=== PATIENT | female | born 2000 | race Caucasian/White ===

== ENCOUNTER 2020-11-27 13:47 | Emergency (ER) | payer OTHER ==
[~2020-11-27] VITALS: Ht 157.5 cm; Wt 95.3 kg
[2020-11-27 13:54] VITALS: BP 119/76
--- NOTE | 2020-11-27 13:55 | NUR ---
Patient ambulated to bed 08 with steady/even gait.
[2020-11-27] MEDS ORDERED: KETOROLAC 30 MG/ML VIAL IM ONE (14:00)
--- NOTE | 2020-11-27 14:02 | NUR ---
20 y/o F coming in from home with c/c left ring finger pain. Patient states she fell while cleaning at home yesterday, landed on her hand and began experiencing swelling. Pt states she took Tylenol at 10am 11/27/20 with minor relief. Pt denies any other medical complaint at this time. Denies head, neck, back pain and states she did not lose LOC or injury any other body part. Swelling noted to left ring finger; CMS intact. Patient states it's hard for her to make a fist with her left hand due to the pain/swelling. Pt placed onto blood pressure cuff, pulse ox. Bed locked in lowest position, side rails x 1, call light in reach. PMH/Meds/Sx: Denies GAILA
--- NOTE | 2020-11-27 14:08 | NUR ---
Xray at bedside
--- NOTE | 2020-11-27 14:30 | NUR ---
Patient states minor relief with pain medication; states pain 8/10 at this time. Respirations even/unlabored. Bed locked in lowest position, side rails x 1, call light in reach.
--- NOTE | 2020-11-27 14:48 | NUR ---
Patient states better pain relief; 6/10 at this time. No distress noted; respirations even/unlabored. Bed locked in lowest position, side rails x 1, call light in reach.
[2020-11-27] MEDS ORDERED: NAPR-54 PO (14:51)
[2020-11-27 15:19] VITALS: BP 115/71
== END 2020-11-27 15:19 | disposition home or self-care (01) ==
LOC: MED 13:47
DX: M79.645 Pain in left finger(s) (principal); W19.XXXA Unspecified fall, initial encounter; Y93.89 Activity, other specified; Y92.89 Other specified places as the place of occurrence of the external cause; Y99.8 Other external cause status
CPT/HCPCS: 73140; 96372; 99283; J1885

== ENCOUNTER 2020-12-18 13:09 | Emergency (ER) | payer OTHER ==
[~2020-12-18] VITALS: Ht 157.5 cm; Wt 99.8 kg
[~2020-12-18 13:09] MED LIST: NAPR-54 PO
[2020-12-18 13:27] VITALS: BP 119/83
--- NOTE | 2020-12-18 13:53 | NUR ---
PT TAKEN TO CT VIA W/C.
--- NOTE | 2020-12-18 13:58 | NUR ---
PT TAKEN TO LOBBY FROM CT.
--- NOTE | 2020-12-18 14:04 | NUR ---
PATIENT AMBULATED TO BED 11.
[2020-12-18 14:09] LABS: APPEARANCE,URINE CLEAR (CLEAR); BILIRUBIN,URINE NEGATIVE (NEGATIVE); BLOOD, URINE NEGATIVE (NEGATIVE); COLOR,URINE YELLOW (YELLOW); LEUKOCYTE ESTERASE ,URINE TRACE (NEGATIVE); NITRITE, URINE NEGATIVE (NEGATIVE); PH,URINE 5.5 (5.0-9.0); UGLUCOSE NEGATIVE (NEGATIVE)
[2020-12-18 14:09] LABS: HEMATOCRIT 36.2 % (36-48); HEMOGLOBIN 11.4 g/dL (12.0-16.0); MEAN CORPUSCULAR HEMOGLOBIN 21 pg (27-31); MEAN CORPUSCULAR HGB CONC 32 g/dL (33-37); MEAN CORPUSCULAR VOLUME 67.6 fL (80-94); PLATELET COUNT (AUTO) 358 K/uL (140-450); RED BLOOD CELL COUNT(AUTO) 5.35 MIL/uL (4.20-5.40); RED CELL DISTRIBUTION WIDTH 17.2 % (11.6-13.7); WHITE BLOOD COUNT (AUTO) 8.7 K/uL (4.8-10.8)
--- NOTE | 2020-12-18 14:12 | NUR ---
Dr. Ortega is evaluating the patient at bedside.
--- NOTE | 2020-12-18 14:17 | NUR ---
20 YEAR OLD FEMALE COMPLAINS OF ABDOMINAL PAIN, NAUSEA, VOMITTING, AND DIARRHEA X 2AM IN MORNING. PT DENIES TRAUMA, DENIES BLOOD IN VOMIT/DEFECATION, DENIES CHANGES IN DIET. PT AOX4, BREATHING EVEN AND UNLABORED, SKIN WARM AND DRY. BED IN LOWEST POSITION, LOCKED, SEMI-KAYE POSITION, BED RAIL UPX1. PMH - DENIES ALLERGIES - NKA
[2020-12-18 14:23] LABS: RBC,URINE 0-5 /HPF (0-5)
[2020-12-18 14:24] LABS: ALBUMIN 3.9 g/dL (3.4-5.0); ANION GAP 11.2 (8-16); CARBON DIOXIDE 29.4 mmol/L (21-32); CREATININE 0.7 mg/dL (0.6-1.3); POTASSIUM 3.6 mmol/L (3.5-5.1); TOTAL BILIRUBIN 0.7 mg/dL (0.0-1.0)
[2020-12-18] MEDS ORDERED: NACL 0.9% 1,000 ML IV ONE (14:45)
[2020-12-18] MEDS ORDERED: KETOROLAC 30 MG/ML VIAL IVP ONE (14:45)
[2020-12-18] MEDS ORDERED: ONDANSETRON 4 MG/2 ML VIAL IVP ONE (14:45)
[2020-12-18] MEDS ORDERED: ONDA8TAB87 PO ×2 (15:16→16:01)
[2020-12-18] MEDS ORDERED: CIPR500T4 PO ×2 (15:16→16:01)
[2020-12-18] MEDS ORDERED: IBUP-2213 PO ×2 (15:16→16:01)
--- NOTE | 2020-12-18 15:37 | NUR ---
IV removed, catheter intact and site benign. Applied folded 4x4 gauze and tape to stop bleeding.
[2020-12-18 15:54] LABS: EOSINOPHILS % (MANUAL) 1 % (0-4); LYMPHOCYTES % (MANUAL) 10 % (20-46); MONOCYTES % (MANUAL) 3 % (5-12)
--- NOTE | 2020-12-18 16:00 | NUR ---
PT REQUESTED DIFFERENT PHARMACY. PHARMACY WAS CHANGED AND ERMD NOTIFIED.
--- NOTE | 2020-12-18 16:00 | NUR ---
Patient discharged with v/s stable. Written and verbal after care instructions about nausea, vomitting, UTI, diarrhea, abdominal pain given and explained. Patient alert, oriented and verbalized understanding of instructions. Ambulatory with steady gait. All questions addressed prior to discharge. ID band removed. Patient advised to follow up with PMD. Rx of cipro, ibuprofen, zofran given. Patient educated on indication of medication including possible reaction and side effects. Opportunity to ask questions provided and answered.
[2020-12-18 16:10] VITALS: BP 119/83
== END 2020-12-18 16:00 | disposition home or self-care (01) ==
LOC: MED 13:09
DX: N39.0 Urinary tract infection, site not specified (principal); R10.13 Epigastric pain; R11.2 Nausea with vomiting, unspecified; R19.7 Diarrhea, unspecified; F17.210 Nicotine dependence, cigarettes, uncomplicated
CPT/HCPCS: 36415; 74176; 80053; 81001; 81025; 83690; 85025; 87086; 96374; 96375; 99284; J1885; J2405; J7030

== ENCOUNTER 2021-09-08 22:06 | Emergency (ER) | payer OTHER ==
[~2021-09-08] VITALS: Ht 157.5 cm; Wt 111.8 kg
[~2021-09-08 22:06] MED LIST changes: +CIPR500T4 PO; +IBUP-2213 PO; +ONDA8TAB87 PO
[2021-09-08 23:03] VITALS: BP 128/73
[2021-09-08] MEDS ORDERED: HYDROcodone/APAP 5/325 MG 1 TAB TAB PO ONE (23:05)
--- NOTE | 2021-09-08 23:05 | NUR ---
8 LEFT TOE PAIN 1ST AND 5TH TOE S/P DROPPING CEMENT BUCKET ON FOOT XYESTERDAY. PT HAS LIMITED ROM. REPORTS NUMBNESS. PT TOOK TYLENOL YESTERDAY WITH NO RELIEF. +SWELLING. DENIES HX, RX AND ALLERGIES
[2021-09-08] MEDS ORDERED: KETOROLAC 30 MG/ML VIAL IM ONE (23:10)
--- NOTE | 2021-09-08 23:16 | NUR ---
PT IN LOBBY.
[2021-09-08 23:55] VITALS: BP 128/73
--- NOTE | 2021-09-08 23:55 | NUR ---
Patient discharged with v/s stable. Written and verbal after care instructions given and explained. Patient verbalized understanding. Ambulatory with steady gait. All questions addressed prior to discharge. Advised to follow up with PMD.
== END 2021-09-08 23:55 | disposition home or self-care (01) ==
LOC: MED 22:06
DX: S90.32XA Contusion of left foot, initial encounter (principal); Z79.899 Other long term (current) drug therapy; W20.8XXA Other cause of strike by thrown, projected or falling object, initial encounter; Y93.89 Activity, other specified; Y92.89 Other specified places as the place of occurrence of the external cause; Y99.8 Other external cause status
CPT/HCPCS: 73630; 96372; 99283; J1885; Q0092

== ENCOUNTER 2022-01-08 11:06 | Emergency (ER) | payer OTHER ==
[~2022-01-08] VITALS: Ht 157.5 cm; Wt 112.9 kg
[2022-01-08 11:12] VITALS: BP 127/77
[2022-01-08] MEDS ORDERED: DEXAMETHASONE 10 MG/ML VIAL IM ONE (12:30)
[2022-01-08] MEDS ORDERED: AMOX-999 PO (12:42)
[2022-01-08] MEDS ORDERED: BENZ-300 PO (12:42)
[2022-01-08] MEDS ORDERED: IBUP-2213 PO (12:42)
--- NOTE | 2022-01-08 13:05 | NUR ---
21/F C/O INTERMITTENT FEVERS, SORE THROAT AND BODY ACHES SINCE YESTERDAY. STATES SHE TOOK OTC COLD MEDICINE WITH NO RELIEF, DENIES CP, SOB OR RECENT SICK CONTACTS.
--- NOTE | 2022-01-08 13:16 | NUR ---
JUAN JOSE SWAB COLLECTED AND WALKED TO LAB
[2022-01-08 13:26] VITALS: BP 117/98
--- NOTE | 2022-01-08 13:26 | NUR ---
Patient discharged with v/s stable. Written and verbal after care instructions ABOUT PHARYNGITIS AND VIRAL ILLNESS given and explained. Patient alert, oriented and verbalized understanding of instructions. Ambulatory with steady gait. All questions addressed prior to discharge. ID band removed. Patient advised to follow up with PMD. Rx of AUGMENTIN 500-125, CEPACOL LOZENGE AND IBUPROFEN given. Patient educated on indication of medication including possible reaction and side effects. Opportunity to ask questions provided and answered.
== END 2022-01-08 13:24 | disposition home or self-care (01) ==
LOC: MED 11:06
DX: J02.9 Acute pharyngitis, unspecified (principal); Z20.822 Contact with and (suspected) exposure to COVID-19; Z79.899 Other long term (current) drug therapy
CPT/HCPCS: 87426; 96372; 99283; J1100

== ENCOUNTER 2023-02-17 10:15 | Emergency (ER) | payer OTHER ==
[~2023-02-17] VITALS: Ht 165.1 cm; Wt 114.3 kg
[~2023-02-17 10:15] MED LIST changes: +AMOX-999 PO; +BENZ-300 PO
[2023-02-17 11:06] VITALS: BP 129/81; PULSE 72; RESP 16; TEMP 98; O2SAT 98
--- NOTE | 2023-02-17 11:21 | NUR ---
TEST IS NEGATIVE, DONE IN POINT OF CARE IN TRIAGE
[2023-02-17] MEDS ORDERED: ACET-10509 PO (12:40)
[2023-02-17] MEDS ORDERED: IBUP-2213 PO (12:40)
--- NOTE | 2023-02-17 12:45 | NUR ---
JAJA WRAP TO L FOOT. PT GIVEN CRUTCHES AND RETURNED SAFE DEMONSTRATION. + CMS
[2023-02-17 12:47] VITALS: BP 115/70; PULSE 74; RESP 17; O2SAT 98
--- NOTE | 2023-02-17 12:48 | NUR ---
Patient discharged with v/s stable. Written and verbal after care instructions given and explained. Patient alert, oriented and verbalized understanding of instructions. Ambulatory with steady gait. All questions addressed prior to discharge. ID band removed. Patient advised to follow up with PMD. Rx of TYLENOL, MOTRIN given. Patient educated on indication of medication including possible reaction and side effects. Opportunity to ask questions provided and answered.
== END 2023-02-17 12:48 | disposition home or self-care (01) ==
LOC: MED 10:15
DX: S83.8X2A Sprain of other specified parts of left knee, initial encounter (principal); S93.692A Other sprain of left foot, initial encounter; X58.XXXA Exposure to other specified factors, initial encounter; Y93.89 Activity, other specified; Y92.89 Other specified places as the place of occurrence of the external cause; Y99.8 Other external cause status
CPT/HCPCS: 73562; 73630; 81025; 99284